=== PATIENT | female | born 1990 | race Caucasian/White ===

== ENCOUNTER 2017-12-30 03:39 | Emergency (ER) | payer OTHER ==
[2017-12-30] MEDS ORDERED: Sodium Chloride 0.9% 10 ML Syringe FLUSH PRN (04:02)
[2017-12-30] MEDS ORDERED: Sodium Chloride 0.9% 1,000 ML IV ONE (04:02)
[2017-12-30] MEDS ORDERED: Ketorolac 60 MG/2 ML SDV IVPUSH ONE (04:03)
[2017-12-30] MEDS ORDERED: Prochlorperazine 10 MG in Sodium Chloride 0.9% 50 ML IV ONE (04:04)
[2017-12-30] MEDS ORDERED: diphenhydrAMINE 50 MG/ML SDV IVPUSH ONE (04:04)
--- NOTE | 2017-12-30 05:13 | EDM.PDOC ---
ED HPI GENERAL MEDICAL PROBLEM - General Chief Complaint: Headache Stated Complaint: MIGRAIN VOMMITTING Time Seen by Provider: 12/30/17 03:42 Source of Information: Reports: Patient - History of Present Illness INITIAL COMMENTS - FREE TEXT/NARRATIVE: See dictated documentation. Treatments RN RADIATION: Reports: Acetaminophen Headache Pain Score (Numeric/FACES): 9 - Related Data Allergies Allergy/AdvReac Type Severity Reaction Status Date / Time No Known Allergies Allergy Verified 12/30/17 03:56 Home Meds: Home Meds . [No Known Home Meds] 12/30/17 [History] Past Medical History Neurological History: Reports: Migraines - Past Surgical History Female Surgical History: Reports: Hysterectomy, Other (See Below) Other Female Surgeries/Procedures: pelvic floor reconstruction Social & Family History - Tobacco Use Smoking Status *Q: Never Smoker - Caffeine Use Caffeine Use: Reports: Coffee - Recreational Drug Use Recreational Drug Use: No ED ROS GENERAL - Review of Systems Review Of Systems: ROS reveals no pertinent complaints other than HPI. - Physical Exam Exam: See Below Course - Vital Signs Last Recorded V/S: Last Vital Signs Temp 36.2 C 12/30/17 03:52 Pulse 65 12/30/17 03:52 Resp 16 12/30/17 03:52 BP 126/100 H 12/30/17 03:52 Pulse Ox 100 12/30/17 03:52 - Orders/Labs/Meds Orders: Active Orders 24 hr Category Date Time Status Peripheral IV Care [RC] . DIRECTED Care 12/30/17 04:02 Active Sodium Chloride 0.9% [Saline Flush] Med 12/30/17 04:02 Active 10 ml FLUSH ASDIRECTED PRN Peripheral IV Insertion Adult [OM.PC] Routine Oth 12/30/17 04:02 Ordered Medication Orders Sodium Chloride (Saline Flush) 10 ml FLUSH ASDIRECTED PRN PRN Reason: Keep Vein Open Last Admin: 12/30/17 04:24 Dose: 10 ml Meds: Medications Generic Name Dose Route Start Last Admin Trade Name Freq PRN Reason Stop Dose Admin Sodium Chloride 10 ml 12/30/17 04:02 12/30/17 04:24 Saline Flush FLUSH 10 ml ASDIRECTED PRN Administration Keep Vein Open Discontinued Medications Generic Name Dose Route Start Last Admin Trade Name Freq PRN Reason Stop Dose Admin Diphenhydramine HCl 25 mg 12/30/17 04:04 12/30/17 04:21 Benadryl IVPUSH 12/30/17 04:05 25 mg ONETIME ONE Administration Sodium Chloride 1,000 mls @ 999 mls/hr 12/30/17 04:02 12/30/17 04:19 Normal Saline IV 12/30/17 05:02 999 mls/hr ONETIME ONE Administration Prochlorperazine Edisylate 10 52 mls @ 150 mls/hr 12/30/17 04:04 12/30/17 04: 22 mg/ Sodium Chloride IV 12/30/17 04:24 150 mls/hr ONETIME ONE Administration Ketorolac Tromethamine 30 mg 12/30/17 04:03 12/30/17 04:20 Toradol IVPUSH 12/30/17 04:04 30 mg ONETIME ONE Administration Departure - Departure Time of Disposition: 05:11 Disposition: Home, Self-Care 01 Condition: Good Clinical Impression: Migraine - Discharge Information *PRESCRIPTION DRUG MONITORING PROGRAM REVIEWED*: Not Applicable *COPY OF PRESCRIPTION DRUG MONITORING REPORT IN PATIENT VASQUEZ: Not Applicable Instructions: Recurrent Migraine Headache Referrals: PCP,None [Primary Care Provider] - Additional Instructions: Take extra strength tylenol, as needed. Avoid Ibuprofen or Aleve until tomorrow evening, and then you can use these, as we discussed. Followup with your provider. - My Orders Last 24 Hours: My Active Orders 12/30/17 04:02 Peripheral IV Care [RC] . DIRECTED Sodium Chloride 0.9% [Saline Flush] 10 ml FLUSH ASDIRECTED PRN Peripheral IV Insertion Adult [OM.PC] Routine - Assessment/Plan Last 24 Hours: My Active Orders 12/30/17 04:02 Peripheral IV Care [RC] . DIRECTED Sodium Chloride 0.9% [Saline Flush] 10 ml FLUSH ASDIRECTED PRN Peripheral IV Insertion Adult [OM.PC] Routine
--- NOTE | 2017-12-30 06:12 | ER ---
REASON FOR ER VISIT: Headache. HISTORY OF PRESENT ILLNESS: This 27-year-old woman has a history of migraine headaches dating back to childhood. Yesterday around 5 p.m., over a 2-hour span she gradually developed a typical migraine that involved her left temporal area. The headache became quite severe, it was constant and sharp, but not throbbing. It did not have any thunderclap characteristics. This headache was similar to previous episodes. She did have some nausea and vomited x1. Her symptoms are worsened with light, sound, or movement. She has not had any visual symptoms. She denies any numbness or weakness. She has had CT scans on 2 occasions in the past to evaluate her migraines, the last one in 2010. PAST MEDICAL HISTORY: Only remarkable for hysterectomy in September. CURRENT MEDICATIONS: None, other than Tylenol or ibuprofen as needed. ALLERGIES: None to medications. REVIEW OF SYSTEMS: Pertinent positives and negatives as listed in the HPI. PHYSICAL EXAMINATION: GENERAL: She is lying on her side with her eyes covered in a darkened room. VITAL SIGNS: She is afebrile, pulse rate is 65, blood pressure 126/100, respiratory rate 16, O2 saturations 100%. HEENT: Head is normocephalic. No temporal artery tenderness. Eyes: Pupils equally round and reactive to light. There is no conjunctivitis. NECK: Supple. Nontender. Normal passive range of motion. NEUROLOGIC: Cranial nerves 2 through 12 are intact. Deep tendon reflexes are symmetrical in both lower extremities. Muscle tone, bulk, and strength are normal and symmetrical bilaterally in the upper and lower extremities. Sensation is normal to crude touch. IMPRESSION: Migraine headache. PLAN: She was given an IV of 1000 mL of 0.9 normal saline as well as a cocktail consisting of 10 mg of Compazine, 30 mg of Toradol, and 25 mg of Benadryl IV. Over the next hour and a half her headache improved fairly quickly, and she was sleepy, but her headache was all but abolished. She was instructed to go home and take it easy the rest of the day if possible. She does have a wedding to go to this weekend. I instructed her to refrain from taking any nonsteroidal anti- inflammatories such as ibuprofen or Aleve until tomorrow evening if need be. Until then, she can take extra strength Tylenol. She understands and agrees with this plan. Certainly if anything unusual comes up, she should give us a call or return. All questions were answered. GILMAR /[id number]
== END 2017-12-30 05:46 | disposition home or self-care (01) ==
LOC: JD.ED 03:39
DX: G43.909 Migraine, unspecified, not intractable, without status migrainosus (principal)
CPT/HCPCS: 96361; 96365; 96375; 99283; J0780; J1200; J1885; J7040; J7050; 99284